=== PATIENT | female | born 1990 | race African-American/Black ===

== ENCOUNTER 2017-11-23 13:14 | Emergency (ER) | payer OTHER ==
[~2017-11-23] VITALS: Ht 157.5 cm; Wt 89.1 kg
[2017-11-23 15:38] VITALS: BP 141/95
--- NOTE | 2017-11-23 16:55 | NUR ---
27/F C/O LOWER BACK PAIN/INJURY S/P SLIP AND FALL LAST NIGHT. STS LANDED ON BACK. DENEIS CHI OR LOC. STS TOOK MOTRIN LAST NIGHT, NO RELIEF. HX DENIES. AX DENIES.
[2017-11-23] MEDS ORDERED: KETOROLAC 60 MG/2 ML VIAL IM ONE (17:25)
[2017-11-23 18:30] VITALS: BP 123/78
--- NOTE | 2017-11-23 18:30 | NUR ---
Patient discharged with v/s stable. Written and verbal after care instructions given and explained. Patient alert, oriented and verbalized understanding of instructions. Ambulatory with steady gait. All questions addressed prior to discharge. ID band removed. Patient advised to follow up with PMD. Rx of NAPROSYN & MEDROL given. Patient educated on indication of medication including possible reaction and side effects. Opportunity to ask questions provided and answered.
== END 2017-11-23 18:30 | disposition home or self-care (01) ==
LOC: MED 13:14
DX: S39.012A Strain of muscle, fascia and tendon of lower back, initial encounter (principal); W18.30XA Fall on same level, unspecified, initial encounter; Y93.E9 Activity, other interior property and clothing maintenance; Y92.009 Unspecified place in unspecified non-institutional (private) residence as the place of occurrence of the external cause; Y99.8 Other external cause status
CPT/HCPCS: 72100; 81002; 81025; 96372; 99284; J1885

== ENCOUNTER 2024-05-28 00:40 | Emergency (ER) | payer OTHER ==
[~2024-05-28] VITALS: Ht 157.5 cm; Wt 99.8 kg
[2024-05-28 01:11] VITALS: BP 168/105; PULSE 61; RESP 18; TEMP 98; O2SAT 99
[2024-05-28] MEDS ORDERED: NAPR-337 PO (02:40)
[2024-05-28 02:45] VITALS: BP 168/105; PULSE 61; RESP 18; TEMP 98; O2SAT 99
== END 2024-05-28 02:45 | disposition home or self-care (01) ==
LOC: MED 00:40
DX: S20.219A Contusion of unspecified front wall of thorax, initial encounter (principal); S20.01XA Contusion of right breast, initial encounter; W18.2XXA Fall in (into) shower or empty bathtub, initial encounter; Y93.89 Activity, other specified; Y92.89 Other specified places as the place of occurrence of the external cause; Y99.8 Other external cause status
CPT/HCPCS: 71045; 81025; 99283; Q0092

== ENCOUNTER 2024-08-17 17:55 | Emergency (ER) | payer OTHER ==
[~2024-08-17] VITALS: Ht 157.5 cm; Wt 90.7 kg
[~2024-08-17 17:55] MED LIST: NAPR-337 PO
[2024-08-17 18:18] VITALS: BP 133/83; PULSE 104; RESP 18; TEMP 98; O2SAT 99
[2024-08-17 19:34] VITALS: BP 130/83; PULSE 92; RESP 18; TEMP 98.2; O2SAT 99
[2024-08-17] MEDS ORDERED: PRED20TA5 PO (19:38)
== END 2024-08-17 19:45 | disposition home or self-care (01) ==
LOC: MED 17:55
DX: R05.9 Cough, unspecified (principal); F17.200 Nicotine dependence, unspecified, uncomplicated; Z79.899 Other long term (current) drug therapy
CPT/HCPCS: 71045; 99283; Q0092